=== PATIENT | male | born 1970 | race Caucasian/White ===

== ENCOUNTER 2024-01-11 00:51 | Emergency (ER) | payer MEDICAID, OTHER ==
[~2024-01-11] VITALS: Ht 180.3 cm; Wt 86.2 kg
[2024-01-11] MEDS ORDERED: CEPH500C2 PO (01:44)
[2024-01-11] MEDS ORDERED: TDAP DIPH,PERTUSS,TET VAC/PF 0.5 ML DISP.SYRIN IM ONE (01:46)
[2024-01-11] MEDS ORDERED: CEphaleXIN 500 MG CAPSULE ONE (01:46)
[2024-01-11] MEDS: CEphaleXIN 500 MG CAPSULE PO ONE (01:50)
[2024-01-11] MEDS: TDAP DIPH,PERTUSS,TET VAC/PF 0.5 ML DISP.SYRIN IM ONE (01:50)
[2024-01-11 02:03] VITALS: BP 117/72; O2SAT 97
== END 2024-01-11 02:04 | disposition home or self-care (01) ==
LOC: ER 01:08
DX: L03.012 Cellulitis of left finger (principal); Z79.899 Other long term (current) drug therapy
CPT/HCPCS: 90715; A4606; A4663